=== PATIENT | female | born 2000 | race Hispanic/Latino ===

== ENCOUNTER 2023-07-16 00:46 | Emergency (ER) | payer MEDICAID, SELFPAY ==
[2023-07-16] MEDS ORDERED: Ciprofloxacin HCL/Dexameth Otic Drops 7.5 ml Bottle ONE (02:59)
== END 2023-07-16 03:04 | disposition home or self-care (01) ==
LOC: CSHERS 00:46
DX: H60.91 Unspecified otitis externa, right ear (principal)
CPT/HCPCS: 99282